=== PATIENT | male | born 1950 | race Caucasian/White ===

== ENCOUNTER → 2020-04-03 | Outpatient (CLI) | payer MEDICARE | END | disposition home or self-care (01) | LOC: PLD 14:16 → LAB SHORT 14:16 | DX: D48.5 Neoplasm of uncertain behavior of skin (principal) | CPT/HCPCS: 88305 ==

== ENCOUNTER 2021-07-02 15:32 | Emergency (ER) | payer MEDICARE ==
[~2021-07-02] VITALS: Ht 172.7 cm; Wt 4.5 kg
== END 2021-07-02 16:00 | disposition left against medical advice (07) ==
LOC: ER 15:32
DX: Z53.21 Procedure and treatment not carried out due to patient leaving prior to being seen by health care provider (principal)

== ENCOUNTER 2023-06-09 10:34 | Day surgery (SDC) | payer MEDICARE ==
[~2023-06-09] VITALS: Ht 172.7 cm; Wt 79.9 kg
[~2023-06-09 10:34] MED LIST: AMLO10 PO; LOSARTAN POTAS100 M1 PO; METHIMAZOLE5 M1; TAMS.4ER PO
[2023-06-09] MEDS ORDERED: IBUP200 (11:00)
--- NOTE | 2023-06-09 12:12 | NUR ---
06/09/23 1212 Justine Rios NACL 5.5ML USED FOR INFLATION OF POLYP FOR REMOVAL.
[2023-06-09 12:35] VITALS: BP 120/78
== END 2023-06-09 12:56 | disposition home or self-care (01) ==
LOC: ORSCSDS 10:34
PROVIDERS: Internal Medicine Gastroenterology
PROC: 0DBM8ZX Excision of Descending Colon, Via Natural or Artificial Opening Endoscopic, Diagnostic (ICD-10-PCS; principal; 2023-06-09 11:45)
PROC: 0DBH8ZX Excision of Cecum, Via Natural or Artificial Opening Endoscopic, Diagnostic (ICD-10-PCS; principal; 2023-06-09 11:45)
PROC: 0DBL8ZX Excision of Transverse Colon, Via Natural or Artificial Opening Endoscopic, Diagnostic (ICD-10-PCS; principal; 2023-06-09 11:45)
DX: Z12.11 Encounter for screening for malignant neoplasm of colon (principal); Z86.010 Personal history of colon polyps; D12.3 Benign neoplasm of transverse colon; D12.0 Benign neoplasm of cecum; D12.4 Benign neoplasm of descending colon; K64.4 Residual hemorrhoidal skin tags; K57.30 Diverticulosis of large intestine without perforation or abscess without bleeding; E78.5 Hyperlipidemia, unspecified; I10 Essential (primary) hypertension; E03.9 Hypothyroidism, unspecified; Z79.899 Other long term (current) drug therapy
CPT/HCPCS: 88305; J2704; J7120

== ENCOUNTER → 2023-06-17 | Outpatient (CLI) | payer MEDICARE ==
[~2023-06-17] MED LIST changes: +IBUP200
[2023-06-19 23:44] LABS: CREATININE,URINE - PER 24H 1496 mg/d (800-2100); CREATININE,URINE - PER VOLUME 68 mg/dL; HOURS COLLECTED 24 hr; METANEPHRINE,UR - RATIO TO CRT 244 ug/g CRT (0-300); METANEPHRINE,URINE - PER 24H 365 ug/d (55-320); METANEPHRINE,URN - PER VOLUME 166 ug/L; NORMETANEPHRINE,U - PER VOLUME 376 ug/L; NORMETANEPHRINE,URN - PER 24H 827 ug/d (114-865); NORMETANEPHRINE,URN/CRT RATIO 553 ug/g CRT (0-400); TOTAL VOLUME 2200 mL
[2023-06-20 06:25] LABS: CREATININE, URINE - PER 24H 1496 mg/d (800-2100); CREATININE, URINE - PER VOLUME 68 mg/dL; HOURS COLLECTED 24 hr; TOTAL VOLUME 2200 mL; VANILLYLMANDELIC ACID -PER VOL 3.2 mg/L; VANILLYLMANDELIC ACID -RAT CRT 5 mg/gCR (0-6)
[2023-06-20 13:46] LABS: CREATININE,URINE - PER 24H 1496 mg/d (800-2100); CREATININE,URINE - PER VOLUME 68 mg/dL; DOPAMINE,URINE - PER 24H 172 ug/d (71-485); DOPAMINE,URINE - PER VOLUME 78 ug/L; DOPAMINE,URINE - RATIO TO CRT 115 ug/g CRT (0-250); EPINEPHRINE,URINE - PER 24H 20 ug/d (1-14); EPINEPHRINE,URINE - PER VOLUME 9 ug/L; EPINEPHRINE,URN - RATIO TO CRT 13 ug/g CRT (0-20); HOURS COLLECTED 24 hr; NOREPINEPHRINE,UR - PER VOLUME 53 ug/L; NOREPINEPHRINE,URINE - PER 24H 117 ug/d (14-120); NOREPINEPHRINE,URN/CRT RATIO 78 ug/g CRT (0-45); TOTAL VOLUME 2200 mL
[2023-06-21 11:45] LABS: CORTISOL,U FREE - RATIO TO CRT 23.53 ug/g CRT; CORTISOL,URINE FREE - PER 24H 35.2 ug/d (<=60.0); CREATININE,URINE - PER 24H 1496 mg/d (800-2100); CREATININE,URINE - PER VOLUME 68 mg/dL; HOURS COLLECTED 24 hr; TOTAL VOLUME 2200 mL
== END | disposition home or self-care (01) ==
LOC: LAB SHORT 11:30 → LAB 11:30 → LAB FUT 06-12 16:25 → EDSTATUS 06-12 16:25
PROVIDERS: Internal Medicine
DX: D35.00 Benign neoplasm of unspecified adrenal gland (principal)
CPT/HCPCS: 81050; 82384; 82530; 82570; 83835; 84585

== ENCOUNTER 2023-12-01 14:18 | Day surgery (SDC) | payer MEDICARE ==
[~2023-12-01] VITALS: Ht 172.7 cm; Wt 81.5 kg
[~2023-12-01 14:18] MED LIST changes: +ACET325 PO; +Atropine Sulfate 0.1 MG/ML 10ML SYR ONE; +Glycopyrrolate 0.2 MG/ML 1MLVIAL ONE; +Lactated Ringer's 1,000 ML IV ONE; +Lidocaine 2% 5 ML SDV ONE; +Lidocaine HCl/Pf 1% 5 ML VIAL ONE; -METHIMAZOLE5 M1; +METHIMAZOLE5 M1 PO; +Methylene Blue 1% 100 MG/10 ML VIAL ONE; +Ondansetron HCl 2 MG / ML 2ML Vial ONE; +ePHEDrine Sulfate 50 MG/ML 1ML Injection ONE
[2023-12-01] MEDS ORDERED: ALBU90OI (14:37)
[2023-12-01] MEDS ORDERED: FINA5 (14:38)
[2023-12-01] MEDS ORDERED: CODE30 (14:38)
[2023-12-01] MEDS ORDERED: ZYRTEC10 M2 (14:38)
[2023-12-01] MEDS ORDERED: Crestor40 MG (14:38)
[2023-12-01] MEDS ORDERED: ALLO300 (14:38)
[2023-12-01] MEDS ORDERED: propofoL 40 ML IV ONE (14:57)
[2023-12-01] MEDS ORDERED: Lactated Ringer's 1,000 ML IV ONE (15:30)
[2023-12-01 16:28] VITALS: BP 110/72
== END 2023-12-01 16:30 | disposition home or self-care (01) ==
LOC: ORSCSDS 14:18
PROVIDERS: Specialist
PROC: 0DB48ZX Excision of Esophagogastric Junction, Via Natural or Artificial Opening Endoscopic, Diagnostic (ICD-10-PCS; principal; 2023-12-01 15:30)
PROC: 0D758ZZ Dilation of Esophagus, Via Natural or Artificial Opening Endoscopic (ICD-10-PCS; principal; 2023-12-01 15:30)
DX: K22.2 Esophageal obstruction (principal); K44.9 Diaphragmatic hernia without obstruction or gangrene; K20.90 Esophagitis, unspecified without bleeding; I10 Essential (primary) hypertension; Z87.19 Personal history of other diseases of the digestive system; E03.9 Hypothyroidism, unspecified; E78.5 Hyperlipidemia, unspecified; G47.33 Obstructive sleep apnea (adult) (pediatric); Z85.528 Personal history of other malignant neoplasm of kidney; Z79.899 Other long term (current) drug therapy
CPT/HCPCS: 88305; C1726; J0461; J2001; J2405; J2704; J7120; Q9968